=== PATIENT | female | born 1955 | race Caucasian/White ===

== ENCOUNTER 2024-07-14 15:32 | Emergency (ER) | payer MEDICARE ==
[~2024-07-14] VITALS: Ht 180.3 cm; Wt 100.9 kg
[2024-07-14 16:03] LABS: HEMATOCRIT 43.4 % (37.0-47.0); HEMOGLOBIN 14.7 g/dL (12.5-16.0); MEAN CELL VOLUME 85 fl (78-100); MEAN CORPUSCULAR HEMOGLOBIN 29 pg (27-31); MEAN CORPUSCULAR HGB CONC 34 g/dL (33-37); MEAN PLATELET VOLUME 10.1 fl (7.4-10.4); PLATELET COUNT 210 K/mm3 (130-400); RED BLOOD COUNT 5.08 M/mm3 (4.10-5.30); RED CELL DISTRIBUTION WIDTH 12.7 % (11.5-14.5); WHITE BLOOD COUNT 2.4 K/mm3 (4.8-10.8)
[2024-07-14 16:24] LABS: D-DIMER 0.96 mg/L FEU (0.15-0.50)
[2024-07-14 16:27] LABS: ALBUMIN 3.8 g/dL (3.4-4.8)
[2024-07-14 16:29] LABS: CALCIUM 8.7 mg/dL (8.3-10.5)
[2024-07-14 16:30] LABS: TOTAL PROTEIN 7.1 g/dL (6.2-8.1)
[2024-07-14 16:32] LABS: TOTAL BILIRUBIN 0.4 mg/dL (0.2-1.2)
[2024-07-14] MEDS ORDERED: Iohexol 350 - 100 ML VIAL IV ONE (17:09)
[2024-07-14] MEDS ORDERED: NS 100 ML IV SCH (17:10)
[2024-07-14] MEDS ORDERED: ZOFRAN ODT4 MG PO (17:24)
[2024-07-14] MEDS ORDERED: ELIQUIS5 MG PO (17:25)
[2024-07-14 17:53] LABS: LYMPHOCYTE 31 % (20-51); MONOCYTE 35 % (3-10); NEUTROPHILS 34 % (42-75)
[2024-07-14 18:18] VITALS: BP 147/72
== END 2024-07-14 18:28 | disposition home or self-care (01) ==
LOC: ED 15:32
PROVIDERS: Family Medicine
DX: J11.1 Influenza due to unidentified influenza virus with other respiratory manifestations (principal); I48.91 Unspecified atrial fibrillation; E86.0 Dehydration; R74.8 Abnormal levels of other serum enzymes
CPT/HCPCS: J1650; J7120; Q9967

== ENCOUNTER → 2024-07-14 | Outpatient (CLI) | payer MEDICARE ==
[~2024-07-14] MED LIST: ELIQUIS5 MG PO; ZOFRAN ODT4 MG PO
== END ==
LOC: AMSURD 14:30
DX: R00.8 Other abnormalities of heart beat (principal)